=== PATIENT | male | born 2000 | race Caucasian/White ===

== ENCOUNTER 2023-03-20 09:20 | Emergency (ER) | payer MEDICAID, OTHER ==
[~2023-03-20] VITALS: Ht 177.8 cm; Wt 82.0 kg
[2023-03-20 09:42] VITALS: BP 114/63; RESP 16; TEMP 97.9; O2SAT 99
[2023-03-20 09:43] VITALS: PULSE 94
[2023-03-20] MEDS ORDERED: CIPHCO RIGHT EAR (10:23)
[2023-03-20] MEDS ORDERED: ISOP30DR11 RIGHT EAR (10:27)
== END 2023-03-20 10:45 | disposition home or self-care (01) ==
LOC: ER 10:03
DX: H92.01 Otalgia, right ear (principal)
CPT/HCPCS: 99281; 99283